=== PATIENT | female | born 1970 | race American Indian/Alaskan Native ===

== ENCOUNTER 2020-09-16 08:52 | Observation (INO) | payer OTHER, SELFPAY ==
--- NOTE | 2020-09-16 10:52 | Emergency Department Report ---
ED Dizziness HPI - General Chief Complaint: Dizziness Stated Complaint: DIZZY/LIGHT HEADED/BP HIGH Time Seen by Provider: 09/16/20 10:41 Source: patient Mode of arrival: Ambulatory Limitations: No Limitations - History of Present Illness Initial Comments: 50-year-old female presents to the ER today with complaints of not feeling well. Patient states that symptoms started this past Friday. She states that she has been feeling dizzy, generally weak especially in her legs, with associated nausea and vomiting and sometimes diarrhea. She reports associated slight headache but she denies any abdominal pain, chest pain or shortness of breath. She states that she try to go to work today but she still felt bad and when they checked her blood pressure was 160/105 and they recommended that she come to the ER to get checked out. She does have a history of tobacco use but denies any history of hypertension, diabetes, high cholesterol, heart or lung disease. MD Complaint: dizziness, lightheadedness, other (n/v, generalized weakness, elevated BP) - Related Data Home Medications Medication Instructions Recorded Confirmed Last Taken Multivit-Min/Iron/Folic Acid/K 1 each PO QDAY 09/16/20 09/16/20 09/16/20 08:00 [One Daily Women's Multivitamin] No Known Home Medications [No 09/16/20 09/16/20 Unknown Reported Home Medications] Allergies Allergy/AdvReac Type Severity Reaction Status Date / Time acetaminophen [From Percocet] Allergy Itching Verified 09/16/20 15:17 oxycodone [From Percocet] Allergy Itching Verified 09/16/20 15:17 ED Review of Systems ROS: Stated complaint: DIZZY/LIGHT HEADED/BP HIGH Other details as noted in HPI Comment: All other systems reviewed and negative Constitutional: denies: chills, fever Eyes: denies: eye pain, eye discharge, vision change ENT: denies: ear pain, throat pain Respiratory: denies: cough, shortness of breath, SOB with exertion, SOB at rest, wheezing Cardiovascular: denies: chest pain, palpitations, edema, syncope, paroxysmal nocturnal dyspnea Endocrine: no symptoms reported Gastrointestinal: nausea, vomiting, diarrhea. denies: abdominal pain, constipation, hematemesis, melena, hematochezia Genitourinary: denies: urgency, dysuria, frequency, hematuria, discharge, abnormal menses, dyspareunia Musculoskeletal: denies: joint swelling, arthralgia, myalgia Skin: denies: rash, lesions, change in color, change in hair/nails, pruritus Neurological: weakness. denies: numbness, paresthesias, confusion, abnormal gait Psychiatric: as per HPI. denies: anxiety, depression, homicidal thoughts, suicidal thoughts Hematological/Lymphatic: denies: easy bleeding, easy bruising, swollen glands ED Past Medical Hx - Past Medical History Previous Medical History?: Yes Hx Asthma: Yes - Surgical History Past Surgical History?: Yes Additional Surgical History: hernia repair - Medications Home Medications: Home Medications Medication Instructions Recorded Confirmed Last Taken Type Multivit-Min/Iron/Folic Acid/K 1 each PO QDAY 09/16/20 09/16/20 09/16/20 08:00 History [One Daily Women's Multivitamin] No Known Home Medications [No 09/16/20 09/16/20 Unknown History Reported Home Medications] ED Physical Exam - General Limitations: No Limitations General appearance: alert, in no apparent distress - Head Head exam: Present: atraumatic, normocephalic, normal inspection - Eye Eye exam: Present: normal appearance, PERRL, EOMI Pupils: Present: normal accommodation - ENT ENT exam: Present: normal exam, mucous membranes moist - Neck Neck exam: Present: normal inspection, full ROM - Respiratory Respiratory exam: Present: normal lung sounds bilaterally. Absent: respiratory distress, wheezes, rales, rhonchi - Cardiovascular Cardiovascular Exam: Present: normal rhythm, tachycardia, normal heart sounds - GI/Abdominal GI/Abdominal exam: Present: soft. Absent: distended, tenderness, guarding, rebound - Back Exam Back exam: Present: normal inspection - Neurological Exam Neurological exam: Present: alert, oriented X3, CN II-XII intact, normal gait - Psychiatric Psychiatric exam: Present: normal affect, normal mood - Skin Skin exam: Present: intact ED Course Vital Signs 09/16/20 09/16/20 09/16/20 08:59 15:18 17:08 Temperature 98.6 F 98.7 F Pulse Rate 110 H 78 Respiratory 20 20 Rate Blood Pressure 147/102 147/86 O2 Sat by Pulse 99 99 99 Oximetry 09/16/20 09/16/20 09/16/20 17:15 17:31 17:45 Temperature Pulse Rate 93 H 96 H 90 Respiratory 15 19 18 Rate Blood Pressure 137/90 137/90 137/90 O2 Sat by Pulse 99 99 98 Oximetry 09/16/20 09/16/20 09/16/20 18:00 18:15 18:31 Temperature Pulse Rate 99 H 107 H 104 H Respiratory 20 16 16 Rate Blood Pressure 127/83 127/83 127/83 O2 Sat by Pulse 98 98 Oximetry 09/16/20 09/16/20 09/16/20 18:45 19:00 19:15 Temperature Pulse Rate 109 H 110 H 117 H Respiratory 16 19 18 Rate Blood Pressure 127/83 123/82 123/82 O2 Sat by Pulse 98 98 Oximetry 09/16/20 09/16/20 09/16/20 19:31 19:45 19:56 Temperature Pulse Rate 116 H 115 H Respiratory 20 18 20 Rate Blood Pressure 123/82 123/82 O2 Sat by Pulse 99 99 95 Oximetry 09/16/20 09/16/20 20:00 20:11 Temperature Pulse Rate 98 H 103 H Respiratory 19 18 Rate Blood Pressure 117/77 117/77 O2 Sat by Pulse 98 Oximetry ED Medical Decision Making - Lab Data Result diagrams: 09/16/20 11:12 09/16/20 11:12 - EKG Data EKG shows normal: sinus rhythm Rate: normal - EKG Data Interpretation: normal EKG - Radiology Data Radiology results: report reviewed interpreted by me: Patient: ELY MARINA MR#: [id number] : 1970 Acct:[id number] Age/Sex: 50 / F ADM Date: 09/16/20 Loc: ED Attending Dr: Ordering Physician: OSWALD ADEN Date of Service: 09/16/20 Procedure(s): XR chest routine 2V Accession Number(s): [id number] cc: OSWALD ADEN Fluoro Time In Minutes: CHEST PA AND LATERAL VIEWS INDICATION: dizzy. COMPARISON: None FINDINGS: Support devices: None Heart: Normal Lungs/Pleura: No acute pulmonary or pleural findings. IMPRESSION: 1. No significant abnormalities. Signer Name: Seth Garcia MD Signed: 09/16/2020 11:22 AM Workstation Name: [id number] Transcribed By: TM Dictated By: Seth Garcia MD Electronically Authenticated By: Seth Garcia MD Signed Date/Time: 09/16/20 1122 DD/ 1122 TD/TT: Patient: ELY MARINA MR#: [id number] : 1970 Acct:[id number] Age/Sex: 50 / F ADM Date: 09/16/20 Loc: ED Attending Dr: Ordering Physician: OSWALD ADEN Date of Service: 09/16/20 Procedure(s): CT head/brain wo con Accession Number(s): [id number] cc: OSWALD ADEN CT HEAD WITHOUT CONTRAST INDICATION / CLINICAL INFORMATION: Patient complains of dizziness. TECHNIQUE: All CT scans at this location are performed using CT dose reduction for ALARA by means of automated exposure control. COMPARISON: None available. FINDINGS: HEMORRHAGE: No evidence of intracranial hemorrhage or extra-axial fluid collection. EXTRA-AXIAL SPACES: Cortical sulci, sylvian fissures and basilar cisterns have an unremarkable appearance. VENTRICULAR SYSTEM: The third and lateral ventricles are of normal size and configuration. CEREBRAL PARENCHYMA: No areas of abnormal brain parenchymal attenuation are identified. There is no indication of recent infarction. MIDLINE SHIFT OR HERNIATION: There is no mass effect. CEREBELLUM / BRAINSTEM: Brainstem and cerebellum have an unremarkable appearance. MIDLINE STRUCTURES:No abnormalities of the pituitary gland or pineal region are identified. INTRACRANIAL VESSELS:No abnormalities are identified on this noncontrast head CT. ORBITS: visualized portions of the orbits have an unremarkable appearance. SOFT TISSUES of HEAD: No significant abnormality. CALVARIUM: Evaluation of bone windows reveals no abnormalities. PARANASAL SINUSES / MASTOID AIR CELLS: Visualized portions of the paranasal sinuses are free from inflammatory mucosal disease. Mastoid air cells are normally pneumatized. IMPRESSION: 1. No significant abnormalities on head CT without contrast. Signer Name: Nigel Link MD Signed: 09/16/2020 1:01 PM Workstation Name: [id number] Transcribed By: Dictated By: Nigel Link MD Electronically Authenticated By: Nigel Link MD Signed Date/Time: 09/16/20 1301 DD/ 1300 TD/TT: - Medical Decision Making 50-year-old female presents to the ER today with complaints of not feeling well. Patient states that symptoms started this past Friday. She states that she has been feeling dizzy, generally weak especially in her legs, with associated nausea and vomiting and sometimes diarrhea. She reports associated slight headache but she denies any abdominal pain, chest pain or shortness of breath. She states that she try to go to work today but she still felt bad and when they checked her blood pressure was 160/105 and they recommended that she come to the ER to get checked out. She does have a history of tobacco use but denies any history of hypertension, diabetes, high cholesterol, heart or lung disease. Patient work-up today shows a mildly elevated troponin, initial troponin level 0.051, 3-hour troponin was 0.044, remainder of the labs are unremarkable. EKG showed normal EKG with sinus rhythm with no acute ischemic changes/STEMI or significant dysrhythmias. Head CT and EKG shows nothing acute. Discussed case with Dr. Namrata Stover and given patient's symptoms and elevations in her troponin, she recommend discussing case with [facility] Alcohol Treatment Specialist and then admitting to hospitalist 1512: Discussed case with Dr Cole, he agrees to admission and will consult on patient and will do an echo in morning. He recommended starting lovenox in meantime 1548: Discussed case with Dr Taylor, Hospitalist, he will admit patient Discussed lab results/imaging results and reason for admission with patient. He expressed understanding and agrees with plan. She is currently resting comfortably and is in no distress and is currently stable. Critical care attestation.: If time is entered above; I have spent that time in minutes in the direct care of this critically ill patient, excluding procedure time. ED Disposition Clinical Impression: Non-ST elevation ND (NSTEMI), Dizziness, Elevated blood pressure reading Disposition: OP ADMIT IP TO THIS HOSP Is pt being admited?: Yes Does the pt Need Aspirin: Yes Condition: Stable
--- NOTE | 2020-09-16 11:27 | XRay Report ---
CHEST PA AND LATERAL VIEWS INDICATION: dizzy. COMPARISON: None FINDINGS: Support devices: None Heart: Normal Lungs/Pleura: No acute pulmonary or pleural findings. IMPRESSION: 1. No significant abnormalities. Signer Name: Seth Garcia MD Signed: 09/16/2020 11:22 AM Workstation Name: [id number]
[2020-09-16 11:32] LABS: Basophils % (Auto) 0.6 % (0.0-1.8); Eosinophils % (Auto) 0.6 % (0.0-4.3); Hemoglobin 12.2 gm/dl (10.1-14.3); Lymphocytes # (Auto) 1.7 K/mm3 (1.2-5.4); Lymphocytes % (Auto) 27.2 % (13.4-35.0); Mean Corpuscular HGB Conc 34 % (30-34); Mean Corpuscular Volume 106 fl (79-97); Monocytes # (Auto) 0.6 K/mm3 (0.0-0.8); Monocytes % (Auto) 9.1 % (0.0-7.3); Platelet Count 207 K/mm3 (140-440); Red Blood Count 3.42 M/mm3 (3.65-5.03); Red Cell Distribution Width 15.7 % (13.2-15.2)
[2020-09-16 11:51] LABS: Alanine Aminotransferase 30 units/L (7-56); Albumin 4.4 g/dL (3.9-5); BUN/Creatinine Ratio 17; Blood Urea Nitrogen 17 mg/dL (7-17); Calcium 8.8 mg/dL (8.4-10.2); Hemolysis Index 4
[2020-09-16] MEDS ORDERED: ASPIRIN 325 MG TAB PO ONE ×2 (12:14→15:19)
[2020-09-16] MEDS ORDERED: MAGNESIUM OXIDE 400 MG TAB PO STA ×2 (12:15→15:20)
[2020-09-16 12:20] LABS: Chol/HDL Ratio 2.22 %
[2020-09-16 12:29] LABS: Amphetamine Screen,Urine Negative; Bacteria,Urine 1+ /HPF (Negative); Benzodiazepines Screen,Urine Negative; Bilirubin,Urine NEG (Negative); Blood,Urine NEG (Negative); Cannabinoid Screen,Urine Negative; Cocaine Screen,Urine Negative; Color,Urine Yellow (Yellow); Methadone Screen,Urine Negative; Mucus,Urine 2+ /HPF; Opiate Screen,Urine Negative
--- NOTE | 2020-09-16 13:06 | Cat Scan Report ---
CT HEAD WITHOUT CONTRAST INDICATION / CLINICAL INFORMATION: Patient complains of dizziness. TECHNIQUE: All CT scans at this location are performed using CT dose reduction for ALARA by means of automated e xposure control. COMPARISON: None available. FINDINGS: HEMORRHAGE: No evidence of intracranial hemorrhage or extra-axial fluid collection. EXTRA-AXIAL SPACES: Cortical sulci, sylvian fissures and basilar cisterns have an unremarkable appear ance. VENTRICULAR SYSTEM: The third and lateral ventricles are of normal size and configuration. CEREBRAL PARENCHYMA: No areas of abnormal brain parenchymal attenuation are identified. There is no i ndication of recent infarction. MIDLINE SHIFT OR HERNIATION: There is no mass effect. CEREBELLUM / BRAINSTEM: Brainstem and cerebellum have an unremarkable appearance. MIDLINE STRUCTURES:No abnormalities of the pituitary gland or pineal region are identified. INTRACRANIAL VESSELS:No abnormalities are identified on this noncontrast head CT. ORBITS: visualized portions of the orbits have an unremarkable appearance. SOFT TISSUES of HEAD: No significant abnormality. CALVARIUM: Evaluation of bone windows reveals no abnormalities. PARANASAL SINUSES / MASTOID AIR CELLS: Visualized portions of the paranasal sinuses are free from inf lammatory mucosal disease. Mastoid air cells are normally pneumatized. IMPRESSION: 1. No significant abnormalities on head CT without contrast. Signer Name: Nigel Link MD Signed: 09/16/2020 1:01 PM Workstation Name: [id number]
[2020-09-16] MEDS ORDERED: ENOXAPARIN 100 MG/1 ML INJ SUB-Q ONE (15:14)
[2020-09-16] MEDS ORDERED: NITROGLYCERIN 0.4 MG TAB SUBL SL PRN (15:46)
[2020-09-16] MEDS ORDERED: ONDANSETRON 4 MG/2 ML INJ IV PRN (15:46)
[2020-09-16] MEDS ORDERED: ACETAMINOPHEN 325 MG TAB PO PRN ×2 (15:46)
--- NOTE | 2020-09-16 15:49 | History and Physical Report ---
History of Present Illness Chief complaint: I do not feel good History of present illness: 50 YO Female with Mild Intermittent Asthma presents to ED for evaluation. Patient reports "I was not feeling well. Patient states that she has experienced generalized weakness, decreased exercise tolerance, multiple episodes of nausea over the past 4 days with persistent symptoms over the same timeframe. Patient states that she has experienced worsening symptoms while at work and was found to have a blood pressure of 160/105. Patient was transported to [facility] via private vehicle for further care and evaluation of the aforementioned symptoms. The patient was seen and evaluated in the emergency department. All lab and imaging studies reviewed. Patient found to have elevated troponin and symptoms consistent with non-ST elevation GA. The patient was admitted to telemetry and treated with therapeutic anticoagulation. Cardiology team consulted in ED. Patient denies fever, chills, palpitation, productive cough, skin rash, recent ill contact, unilateral leg swelling, calf pain, individual/family history of DVT/PE/bleeding/blood clotting disorders, or known exposure to COVID-19. No prior admission for review. No medication listed at time of admission reconciliation. Past History Past Medical History: other (See HPI) Past Surgical History: hernia repair Social history: single. denies: smoking, alcohol abuse, prescription drug abuse Family history: hypertension Medications and Allergies Allergies Allergy/AdvReac Type Severity Reaction Status Date / Time acetaminophen [From Percocet] Allergy Itching Verified 09/16/20 15:17 oxycodone [From Percocet] Allergy Itching Verified 09/16/20 15:17 Home Medications Medication Instructions Recorded Confirmed Last Taken Type Multivit-Min/Iron/Folic Acid/K 1 each PO QDAY 09/16/20 09/16/20 09/16/20 08:00 History [One Daily Women's Multivitamin] No Known Home Medications [No 09/16/20 09/16/20 Unknown History Reported Home Medications] Active Meds: Active Medications Acetaminophen (Acetaminophen 325 Mg Tab) 650 mg PO Q4H PRN PRN Reason: Pain MILD(1-3)/Fever >100.5/SAAMNO Acetaminophen (Acetaminophen 325 Mg Tab) 650 mg PO Q6H PRN PRN Reason: Pain, Mild (1-3) Famotidine (Famotidine 20 Mg Tab) 20 mg PO BID MAIKEL Nitroglycerin (Nitroglycerin 0.4 Mg Tab Subl) 0.4 mg SL Q5M PRN PRN Reason: Chest Pain Ondansetron HCl (Ondansetron 4 Mg/2 Ml Inj) 4 mg IV Q8H PRN PRN Reason: Nausea And Vomiting Sodium Chloride (Sodium Chloride 0.9% 10 Ml Flush Syringe) 10 ml IV BID MAIKEL Sodium Chloride (Sodium Chloride 0.9% 10 Ml Flush Syringe) 10 ml IV PRN PRN PRN Reason: LINE FLUSH Sodium Chloride (Sodium Chloride 0.9% 10 Ml Flush Syringe) 10 ml IV PRN PRN PRN Reason: LINE FLUSH Tramadol HCl (Tramadol 50 Mg Tab) 50 mg PO Q6H PRN PRN Reason: Pain, Moderate (4-6) Review of Systems Constitutional: weakness, other (I do not feel), no weight loss, no chills Ears, nose, mouth and throat: no ear pain, no tinnitis, no nose pain Breasts: no change in shape, no mass Cardiovascular: no chest pain, no orthopnea, no palpitations, no edema, no syncope Respiratory: no cough, no cough with sputum, no excessive sputum, no hemoptysis Gastrointestinal: nausea, vomiting, no abdominal pain, no diarrhea, no constipation, no hematemesis Genitourinary Female: no pelvic pain, no flank pain, no dysuria, no urinary frequency, no urgency Rectal: no pain, no incontinence, no bleeding Musculoskeletal: no neck stiffness, no neck pain Integumentary: no rash, no redness, no sores, no wounds, no jaundice, no boils Neurological: no head injury, no paralysis, no parathesias, no tingling, no seizures Psychiatric: no anxiety, no memory loss, no sleep disturbances, no hypersomnia, no change in libido, no disorientation Endocrine: no cold intolerance, no excessive thirst, no polydipsia Hematologic/Lymphatic: no easy bruising Allergic/Immunologic: no urticaria, no allergic rhinitis, no wheezing Exam - Constitutional Vitals: Temp Pulse Resp BP Pulse Ox 98.7 F 78 20 147/86 99 09/16/20 15:18 09/16/20 15:18 09/16/20 15:18 09/16/20 15:18 09/16/20 15:18 General appearance: Present: mild distress - EENT Eyes: Present: PERRL ENT: hearing intact, clear oral mucosa - Neck Neck: Present: supple, normal ROM - Respiratory Respiratory effort: normal Respiratory: bilateral: CTA - Cardiovascular Heart Sounds: Present: S1 & S2. Absent: rub, click - Extremities Extremities: pulses symmetrical, No edema Peripheral Pulses: within normal limits - Abdominal General gastrointestinal: Present: soft, non-tender, non-distended, normal bowel sounds Female genitourinary: Present: normal - Integumentary Integumentary: Present: clear, warm, dry - Musculoskeletal Musculoskeletal: gait normal, strength equal bilaterally - Psychiatric Psychiatric: appropriate mood/affect, intact judgment & insight - Neurologic Neurologic: CNII-XII intact, moves all extremities HEART Score - HEART Score Troponin: Troponin T 0.044 ng/mL (0.00-0.029) H 09/16/20 14:14 Results - Labs CBC & Chem 7: 09/16/20 11:12 09/16/20 11:12 Labs: Abnormal lab results 09/16/20 09/16/20 09/16/20 Range/Units 11:12 11:12 11:12 RBC 3.42 L (3.65-5.03) M/mm3 MCV 106 H (79-97) fl MCH 36 H (28-32) pg RDW 15.7 H (13.2-15.2) % Waldo % (Auto) 9.1 H (0.0-7.3) % Chloride 96.3 L (98-107) mmol/L Magnesium 1.40 L (1.7-2.3) mg/dL AST 85 H (5-40) units/L Troponin T 0.051 H (0.00-0.029) ng/mL Cholesterol 205 H (50-199) mg/dL HDL Cholesterol 92 H (40-59) mg/dL Urine WBC (Auto) (0.0-6.0) /HPF 09/16/20 09/16/20 Range/Units 11:40 14:14 RBC (3.65-5.03) M/mm3 MCV (79-97) fl MCH (28-32) pg RDW (13.2-15.2) % Waldo % (Auto) (0.0-7.3) % Chloride (98-107) mmol/L Magnesium (1.7-2.3) mg/dL AST (5-40) units/L Troponin T 0.044 H (0.00-0.029) ng/mL Cholesterol (50-199) mg/dL HDL Cholesterol (40-59) mg/dL Urine WBC (Auto) 9.0 H (0.0-6.0) /HPF Assessment and Plan - Patient Problems (1) Non-ST elevation GA (NSTEMI) Current Visit: Yes Status: Acute Plan to address problem: ACS protocol: Serial cardiac enzymes, EKG, telemetry monitoring, cardiology team consulted in ED, therapeutic anticoagulation, supplemental oxygen, morphine, supplemental oxygen, nitro, aspirin, supportive care. Blood pressure control. (2) Accelerated hypertension Current Visit: Yes Status: Acute Plan to address problem: Monitor blood pressure every shift, continue medical management. (3) DVT prophylaxis Current Visit: Yes Status: Acute Plan to address problem: SCD to bilateral lower extremities while in bed, patient is ambulatory.
[2020-09-16 17:15] LABS: INR 0.95 (0.87-1.13)
[2020-09-16] MEDS: traMADol 50 MG TAB PO PRN (22:05)
[2020-09-16] MEDS: FAMOTIDINE 20 MG TAB PO SCH ×2 (22:06→23:35)
[2020-09-17] MEDS: FAMOTIDINE 20 MG TAB PO SCH ×2 (09:47→21:02)
--- NOTE | 2020-09-17 11:55 | Consultation ---
History of Present Illness Consult date: 09/17/20 Requesting physician: EMELY MONSIVAIS Consult reason: elevated troponin History of present illness: 50-year-old patient history of smoker for the last few days having dizziness with movement and her equilibrium off came to the emergency room for evaluation not feeling well. Fluctuations in blood pressure. Found with elevated troponin x2. EKG is sinus rhythm no ST-T abnormalities. Patient denies any chest pain shortness of breath syncope. Did have fever and chills a week ago. Denies any nausea vomiting diarrhea. Repeat troponins have been negative x2 Past History Past Medical History: other (See HPI) Past Surgical History: hernia repair Social history: single. denies: smoking, alcohol abuse, prescription drug abuse Family history: hypertension Medications and Allergies Allergies Allergy/AdvReac Type Severity Reaction Status Date / Time acetaminophen [From Percocet] Allergy Itching Verified 09/16/20 15:17 oxycodone [From Percocet] Allergy Itching Verified 09/16/20 15:17 Home Medications Medication Instructions Recorded Confirmed Last Taken Type Multivit-Min/Iron/Folic Acid/K 1 each PO QDAY 09/16/20 09/16/20 09/16/20 08:00 History [One Daily Women's Multivitamin] No Known Home Medications [No 09/16/20 09/16/20 Unknown History Reported Home Medications] Active Meds: Active Medications Acetaminophen (Acetaminophen 325 Mg Tab) 650 mg PO Q4H PRN PRN Reason: Pain MILD(1-3)/Fever >100.5/SAMANO Famotidine (Famotidine 20 Mg Tab) 20 mg PO BID [facility] Last Admin: 09/17/20 09:47 Dose: 20 mg Documented by: Meclizine HCl (Meclizine 25 Mg Tab) 25 mg PO Q8H PRN PRN Reason: Vertigo Nitroglycerin (Nitroglycerin 0.4 Mg Tab Subl) 0.4 mg SL Q5M PRN PRN Reason: Chest Pain Ondansetron HCl (Ondansetron 4 Mg/2 Ml Inj) 4 mg IV Q8H PRN PRN Reason: Nausea And Vomiting Sodium Chloride (Sodium Chloride 0.9% 10 Ml Flush Syringe) 10 ml IV BID [facility] Last Admin: 09/17/20 09:47 Dose: 10 ml Documented by: Sodium Chloride (Sodium Chloride 0.9% 10 Ml Flush Syringe) 10 ml IV PRN PRN PRN Reason: LINE FLUSH Tramadol HCl (Tramadol 50 Mg Tab) 50 mg PO Q6H PRN PRN Reason: Pain, Moderate (4-6) Last Admin: 09/16/20 22:05 Dose: 50 mg Documented by: Review of Systems All systems: negative (as per hpi) Physical Examination Vital Signs Temp Pulse Resp BP Pulse Ox 98.6 F 110 H 20 147/102 99 09/16/20 08:59 09/16/20 08:59 09/16/20 08:59 09/16/20 08:59 09/16/20 08:59 General appearance: no acute distress, well-nourished HEENT: Positive: PERRL, Mucus Membranes Moist Neck: Positive: neck supple, trachea midline Cardiac: Positive: Reg Rate and Rhythm, S1/S2. Negative: Audible Murmur Lungs: Positive: clear to auscultation, Normal Breath Sounds Neuro: Positive: Grossly Intact Abdomen: Positive: Soft, Active Bowel Sounds. Negative: Tender, Distended Female genitourinary: deferred Skin: Positive: Clear Incision: Cardiac Cath Site Musculoskeletal: No Pain, Normal Range of Motion Extremities: Present: normal. Absent: edema Results 09/16/20 11:12 09/16/20 11:12 Coagulation 09/16/20 Range/Units 16:02 PT 12.6 (12.2-14.9) Sec. INR 0.95 (0.87-1.13) APTT 27.0 (24.2-36.6) Sec. Lipids 09/16/20 Range/Units 11:12 Triglycerides 104 (2-149) mg/dL Cholesterol 205 H (50-199) mg/dL HDL Cholesterol 92 H (40-59) mg/dL Cholesterol/HDL Ratio 2.22 % EKG interpretations - Telemetry EKG Rhythm: Sinus Rhythm (Sinus rhythm no ST-T abnormality) Assessment and Plan 50-year-old patient with fluctuating blood pressure blood pressure currently controlled with dizziness start meclizine and in view of abnormal troponins and smoking history do a Lexiscan nuclear stress test in the morning - Patient Problems (1) Dizziness Current Visit: Yes Status: Acute (2) Elevated blood pressure reading Current Visit: Yes Status: Acute (3) Non-ST elevation NV (NSTEMI) Current Visit: Yes Status: Acute
[2020-09-17] MEDS: MECLIZINE 25 MG TAB PO PRN ×2 (12:29→17:53)
--- NOTE | 2020-09-17 13:12 | Progress Note ---
Assessment and Plan Assessment and plan: (1) Non-ST elevation [place] (NSTEMI) Current Visit: Yes Status: Acute Plan to address problem: Cardiology consulted Plan for stress test tomorrow (2) Accelerated hypertension Current Visit: Yes Status: Acute Plan to address problem: Monitor blood pressure every shift, continue medical management. (3) DVT prophylaxis Current Visit: Yes Status: Acute Plan to address problem: SCD to bilateral lower extremities while in bed, patient is ambulatory. History Interval history: Patient admitted with chest pain. Cardiology consulted Plan for stress test tomorrow Hospitalist Physical - Physical exam Narrative exam: VITAL SIGNS: Reviewed. GENERAL: Awake HEAD: No signs of head trauma. EYES: Pupils are equal. Extraocular motions intact. MOUTH: Oropharynx is normal. NECK: No adenopathy, no JVD. CHEST: Chest with diminished breath sounds bilaterally. No wheezes, rales, or rhonchi. CARDIAC: normal S1 and S2, without murmurs, gallops, or rubs. ABDOMEN: Soft, non tender and non distended. No rebound or guarding, and no masses palpated. Bowel Sounds normal. MUSCULOSKELETAL: No edema NEUROLOGIC EXAM: Alert and oriented x3. No focal neurologic deficits SKIN: No obvious lesions - Constitutional Vitals: Temp Pulse Resp BP Pulse Ox 98.5 F 85 18 114/74 97 09/17/20 08:20 09/17/20 12:00 09/17/20 09:00 09/17/20 08:20 09/17/20 09:00 HEART Score - HEART Score Troponin: Troponin T < 0.010 ng/mL (0.00-0.029) 09/16/20 22:40 Results - Labs CBC & Chem 7: 09/16/20 11:12 09/16/20 11:12 Labs: Laboratory Last Values WBC 6.4 K/mm3 (4.5-11.0) 09/16/20 11:12 RBC 3.42 M/mm3 (3.65-5.03) L 09/16/20 11:12 Hgb 12.2 gm/dl (10.1-14.3) 09/16/20 11:12 Hct 36.0 % (30.3-42.9) 09/16/20 11:12 MCV 106 fl (79-97) H 09/16/20 11:12 MCH 36 pg (28-32) H 09/16/20 11:12 MCHC 34 % (30-34) 09/16/20 11:12 RDW 15.7 % (13.2-15.2) H 09/16/20 11:12 Plt Count 207 K/mm3 (140-440) 09/16/20 11:12 Lymph % (Auto) 27.2 % (13.4-35.0) 09/16/20 11:12 Stone % (Auto) 9.1 % (0.0-7.3) H 09/16/20 11:12 Eos % (Auto) 0.6 % (0.0-4.3) 09/16/20 11:12 Baso % (Auto) 0.6 % (0.0-1.8) 09/16/20 11:12 Lymph # (Auto) 1.7 K/mm3 (1.2-5.4) 09/16/20 11:12 Stone # (Auto) 0.6 K/mm3 (0.0-0.8) 09/16/20 11:12 Eos # (Auto) 0.0 K/mm3 (0.0-0.4) 09/16/20 11:12 Baso # (Auto) 0.0 K/mm3 (0.0-0.1) 09/16/20 11:12 Seg Neutrophils % 62.5 % (40.0-70.0) 09/16/20 11:12 Seg Neutrophils # 4.0 K/mm3 (1.8-7.7) 09/16/20 11:12 PT 12.6 Sec. (12.2-14.9) 09/16/20 16:02 INR 0.95 (0.87-1.13) 09/16/20 16:02 APTT 27.0 Sec. (24.2-36.6) 09/16/20 16:02 Sodium 137 mmol/L (137-145) 09/16/20 11:12 Potassium 3.6 mmol/L (3.6-5.0) 09/16/20 11:12 Chloride 96.3 mmol/L (98-107) L 09/16/20 11:12 Carbon Dioxide 25 mmol/L (22-30) 09/16/20 11:12 Anion Gap 19 mmol/L 09/16/20 11:12 BUN 17 mg/dL (7-17) 09/16/20 11:12 Creatinine 1.0 mg/dL (0.6-1.2) 09/16/20 11:12 Estimated GFR > 60 ml/min 09/16/20 11:12 BUN/Creatinine Ratio 17 % 09/16/20 11:12 Glucose 86 mg/dL (65-100) 09/16/20 11:12 Calcium 8.8 mg/dL (8.4-10.2) 09/16/20 11:12 Magnesium 1.40 mg/dL (1.7-2.3) L 09/16/20 11:12 Total Bilirubin 0.30 mg/dL (0.1-1.2) 09/16/20 11:12 AST 85 units/L (5-40) H 09/16/20 11:12 ALT 30 units/L (7-56) 09/16/20 11:12 Alkaline Phosphatase 99 units/L (35-129) 09/16/20 11:12 Troponin T < 0.010 ng/mL (0.00-0.029) 09/16/20 22:40 Total Protein 7.6 g/dL (6.3-8.2) 09/16/20 11:12 Albumin 4.4 g/dL (3.9-5) 09/16/20 11:12 Albumin/Globulin Ratio 1.4 % 09/16/20 11:12 Triglycerides 104 mg/dL (2-149) 09/16/20 11:12 Cholesterol 205 mg/dL (50-199) H 09/16/20 11:12 LDL Cholesterol Direct 102 mg/dL (50-130) 09/16/20 11:12 HDL Cholesterol 92 mg/dL (40-59) H 09/16/20 11:12 Cholesterol/HDL Ratio 2.22 % 09/16/20 11:12 TSH 1.180 mlU/mL (0.270-4.200) 09/16/20 11:12 Urine Color Yellow (Yellow) 09/16/20 11:40 Urine Turbidity Cloudy (Clear) 09/16/20 11:40 Urine pH 5.0 (5.0-7.0) 09/16/20 11:40 Ur Specific [place] 1.018 (1.003-1.030) 09/16/20 11:40 Urine Protein 30 mg/dl mg/dL (Negative) 09/16/20 11:40 Urine Glucose (UA) Neg mg/dL (Negative) 09/16/20 11:40 Urine Ketones Neg mg/dL (Negative) 09/16/20 11:40 Urine Blood Neg (Negative) 09/16/20 11:40 Urine Nitrite Neg (Negative) 09/16/20 11:40 Urine Bilirubin Neg (Negative) 09/16/20 11:40 Urine Urobilinogen 2.0 mg/dL (<2.0) 09/16/20 11:40 Ur Leukocyte Esterase Tr (Negative) 09/16/20 11:40 Urine WBC (Auto) 9.0 /HPF (0.0-6.0) H 09/16/20 11:40 Urine RBC (Auto) 4.0 /HPF (0.0-6.0) 09/16/20 11:40 U Epithel Cells (Auto) 5.0 /HPF (0-13.0) 09/16/20 11:40 Urine Bacteria (Auto) 1+ /HPF (Negative) 09/16/20 11:40 Urine Mucus 2+ /HPF 09/16/20 11:40 Urine Opiates Screen Negative 09/16/20 11:40 Urine Methadone Screen Negative 09/16/20 11:40 Ur Barbiturates Screen Negative 09/16/20 11:40 Ur Phencyclidine Scrn Negative 09/16/20 11:40 Ur Amphetamines Screen Negative 09/16/20 11:40 U Benzodiazepines Scrn Negative 09/16/20 11:40 Urine Cocaine Screen Negative 09/16/20 11:40 U Marijuana (THC) Screen Negative 09/16/20 11:40 Drugs of Abuse Note Disclamer 09/16/20 11:40 Active Medications - Current Medications Current Medications: Generic Name Dose Route Start Last Admin Trade Name Freq PRN Reason Stop Dose Admin Acetaminophen 650 mg 09/16/20 15:46 Acetaminophen 325 Mg Tab PO Q4H PRN Pain MILD(1-3)/Fever >100.5/SAMANO Famotidine 20 mg 09/16/20 22:00 09/17/20 09:47 Famotidine 20 Mg Tab PO 20 mg BID MAIKEL Administration Meclizine HCl 25 mg 09/17/20 11:52 09/17/20 12:29 Meclizine 25 Mg Tab PO 25 mg Q8H PRN Administration Vertigo Nitroglycerin 0.4 mg 09/16/20 15:46 Nitroglycerin 0.4 Mg Tab Subl SL Q5M PRN Chest Pain Ondansetron HCl 4 mg 09/16/20 15:46 Ondansetron 4 Mg/2 Ml Inj IV Q8H PRN Nausea And Vomiting Sodium Chloride 10 ml 09/16/20 22:00 09/17/20 09:47 Sodium Chloride 0.9% 10 Ml Flush Syringe IV 10 ml BID MAIKEL Administration Sodium Chloride 10 ml 09/16/20 15:46 Sodium Chloride 0.9% 10 Ml Flush Syringe IV PRN PRN LINE FLUSH Tramadol HCl 50 mg 09/16/20 15:46 09/16/20 22:05 Tramadol 50 Mg Tab PO 50 mg Q6H PRN Administration Pain, Moderate (4-6)
[2020-09-17] MEDS: traMADol 50 MG TAB PO PRN (21:02)
[2020-09-18] MEDS ORDERED: REGADENOSON 0.4 MG/5 ML INJ IV ONE (08:26)
[2020-09-18] MEDS: FAMOTIDINE 20 MG TAB PO SCH ×2 (10:59→21:30)
--- NOTE | 2020-09-18 13:14 | Discharge Summary ---
Providers - Providers Date of Admission: 09/16/20 15:46 Attending physician: SAMMY CHAUDHARY MD 09/16/20 Consult to Cardiac Rehabilitation [CONS] Routine Reason For Exam: Phase I 09/16/20 15:56 Consult to Physician [CONS] Routine Comment: Consulting Provider: LOU SABA Physician Instructions: Reason For Exam: nstemi/chf Primary care physician: KIER HAND Hospitalization Reason for admission: Chest pain Condition: Stable Hospital course: 50 YO Female with Mild Intermittent Asthma presents to ED for evaluation. Patient reports "I was not feeling well. Patient states that she has experienced generalized weakness, decreased exercise tolerance, multiple episodes of nausea over the past 4 days with persistent symptoms over the same timeframe. Patient states that she has experienced worsening symptoms while at work and was found to have a blood pressure of 160/105. Patient was transported to [facility] via private vehicle for further care and evaluation of the aforementioned symptoms. The patient was seen and evaluated in the emergency department. All lab and imaging studies reviewed. Patient found to have eleva kiya troponin and symptoms consistent with non-ST elevation [place]. The patient was admitted to telemetry and treated with therapeutic anticoagulation. Cardiology team consulted in ED. Patient denies fever, chills, palpitation, productive cough, skin rash, recent ill contact, unilateral leg swelling, calf pain, individual/family history of DVT/PE/bleeding/blood clotting disorders, or known exposure to COVID-19. No prior admission for review. No medication listed at time of admission reconciliation. Patient on admission was seen by cardiology was noted to have fluctuating blood pressure blood pressure currently controlled with dizziness start meclizine and in view of abnormal troponins and smoking history do a Lexiscan nuclear stress test Counseling was given to the patient on tobacco use she verbalized understanding. - Patient Problems (1) Non-ST elevation [place] (NSTEMI) Current Visit: Yes Status: Acute (2) accelerated hypertension Current Visit: Yes Status: Acute (3) tobacco use disorder (4) dizziness Current Visit: Yes Status: Acute Disposition: - TO HOME OR SELFCARE Final Discharge Diagnosis (Prints w/discharge instructions): Chest pain Time spent for discharge: 35 minutes Core Measure Documentation - Palliative Care Palliative Care/ Comfort Measures: Not Applicable - Core Measures Any of the following diagnoses?: none Exam - Physical Exam Narrative exam: VITAL SIGNS: Reviewed. GENERAL: The patient appears normally developed, Vital signs as documented. HEAD: No signs of head trauma. EYES: Pupils are equal. Extraocular motions intact. EARS: Hearing grossly intact. MOUTH: Oropharynx is normal. NECK: No adenopathy, no JVD. CHEST: Chest with clear breath sounds bilaterally. No wheezes, rales, or rhonchi. CARDIAC: Regular rate and rhythm. S1 and S2, without murmurs, gallops, or rubs. VASCULAR: No Edema. Peripheral pulses normal and equal in all extremities. ABDOMEN: Soft, non tender and non distended. No rebound or guarding, and no masses palpated. Bowel Sounds normal. MUSCULOSKELETAL: Good range of motion of all major joints. Extremities without clubbing, cyanosis or edema. NEUROLOGIC EXAM: Alert and oriented x 3 No focal sensory or strength deficits. Speech normal. Follows commands. PSYCHIATRIC: Mood normal. SKIN: detail exam as documented in skin assessment - Constitutional Vitals: Temp Pulse Resp BP Pulse Ox 98.8 F 64 18 126/87 100 09/18/20 11:44 09/18/20 12:00 09/18/20 11:44 09/18/20 11:44 09/18/20 11:44 Plan Activity: advance as tolerated, fall precautions Diet: low fat Special Instructions: record daily weights, record daily BP diary Follow up with: PRIMARY CARE, [Primary Care Provider] - 3-5 Days TARA BEACH MD [Staff Physician] - 7 Days Prescriptions: Meclizine [Antivert] 25 mg PO Q8H PRN #90 tablet PRN Reason: Vertigo Famotidine [Pepcid] 20 mg PO BID #60 tablet
--- NOTE | 2020-09-18 13:21 | Progress Note ---
Assessment and Plan Telemetry reviewed: Sinus rhythm 83. No events. Elevated troponins Troponins are elevated. Suspect lab error. Repeat troponins are normal. Patient is currently chest pain-free. Due to risk factors patient underwent Lexiscan MPI this a.m. Results are pending Echocardiogram reviewed (09/16/2020): LVEF is 55 to 60%. LV SF is normal. Mild diastolic dysfunction is present (impaired relaxation pattern). RVSP is 25 mmHg 12-lead reviewed no ST segment elevation. Dizziness Symptoms resolved currently on meclizine DVT prophylaxis SCDs are ordered Patient currently in stable cardiac status. Recommendations pending Lexiscan MPI results. Anticipate discharge if normal Will follow This patient was seen in conjunction with Dr Sanchez who agrees with this assessment and plan of care - Patient Problems (1) Dizziness Current Visit: Yes Status: Acute (2) Elevated blood pressure reading Current Visit: Yes Status: Acute (3) Non-ST elevation [place] (NSTEMI) Current Visit: Yes Status: Acute Subjective Date of service: 09/18/20 Principal diagnosis: Dizziness Interval history: Patient resting comfortably in bed. No chest pain or shortness of breath overnight. Telemetry reviewed: Sinus rhythm 83. No events Objective Last Vital Signs Temp 98.8 F 09/18/20 11:44 Pulse 64 09/18/20 12:00 Resp 18 09/18/20 11:44 BP 126/87 09/18/20 11:44 Pulse Ox 100 09/18/20 11:44 - Physical Examination HEENT: Positive: PERRL, Mucus Membranes Moist Neck: Positive: neck supple, trachea midline Cardiac: Positive: Reg Rate and Rhythm, S1/S2 Lungs: Positive: clear to auscultation, Normal Breath Sounds Neuro: Positive: Grossly Intact Abdomen: Positive: Soft, Active Bowel Sounds. Negative: Tender, Distended Skin: Positive: Clear Incision: Cardiac Cath Site Musculoskeletal: No Pain, Normal Range of Motion Extremities: Present: normal. Absent: edema - Imaging and Cardiology EKG: report reviewed, image reviewed Echo: report reviewed (Echocardiogram reviewed (09/16/2020): LVEF is 55 to 60%. LV SF is normal. Mild diastolic dysfunction is present (impaired relaxation pattern). RVSP is 25 mmHg)
[2020-09-18] MEDS: traMADol 50 MG TAB PO PRN (19:48)
[2020-09-18] MEDS: MECLIZINE 25 MG TAB PO PRN (21:30)
[2020-09-19 08:30] VITALS: BP 136/83
[2020-09-19] MEDS: FAMOTIDINE 20 MG TAB PO SCH (10:29)
[2020-09-19] MEDS: MECLIZINE 25 MG TAB PO PRN (11:34)
[2020-09-19] MEDS: traMADol 50 MG TAB PO PRN (11:34)
--- NOTE | 2020-09-19 12:16 | Discharge Summary ---
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 Ifeanyi nt reports "I was not feeling well. Patient states that she has experienced generalized weakness, decreased exercise tolerance, multiple episodes of nausea over the past 4 days with persistent symptoms over the same timeframe. Patient states that she has experienced worsening symptoms while at work and was found to have a blood pressure of 160/105. Patient was transported to [facility] via private vehicle for further care and evaluation of the aforementioned symptoms. The patient was seen and evaluated in the emergency department. All lab and imaging studies reviewed. Patient found to have elevated troponin and symptoms consistent with non-ST elevation RI. The patient was admitted to telemetry and treated with therapeutic anticoagulation. Cardiology team consulted in ED. Patient denies fever, chills, palpitation, productive cough, skin rash, recent ill contact, unilateral leg swelling, calf pain, individual/family history of DVT/PE/bleeding/blood clotting disorders, or known exposure to COVID-19. No prior admission for review. No medication listed at time of admission reconciliation. Hospital course. Patient was seen by cardiology who recommends a stress test.. Patient had a stress test showed no significant ischemia. She complained of dizziness, ringing in her ears and some nasal congestion. Etiology of dizziness likely from vestibular dysfunction. Patient started on meclizine with improvement. She will be discharged to follow-up with her primary medical doctor in 1 to 2 weeks. Disposition: TO HOME OR SELFCARE Final Discharge Diagnosis (Prints w/discharge instructions): Chest pain Time spent for discharge: 35 minutes Core Measure Documentation - Palliative Care Palliative Care/ Comfort Measures: Not Applicable - Core Measures Any of the following diagnoses?: none Exam - Physical Exam Narrative exam: VITAL SIGNS: Reviewed. GENERAL: Awake HEAD: No signs of head trauma. EYES: Pupils are equal. Extraocular motions intact. MOUTH: Oropharynx is normal. NECK: No adenopathy, no JVD. CHEST: Chest with diminished breath sounds bilaterally. No wheezes, rales, or rhonchi. CARDIAC: normal S1 and S2, without murmurs, gallops, or rubs. ABDOMEN: Soft, non tender and non distended. No rebound or guarding, and no masses palpated. Bowel Sounds normal. MUSCULOSKELETAL: No edema NEUROLOGIC EXAM: Alert and oriented x3. No focal neurologic deficits SKIN: No obvious lesions - Constitutional Vitals: Temp Pulse Resp BP Pulse Ox 99.0 F 60 18 136/83 100 09/19/20 07:16 09/19/20 08:03 09/19/20 07:16 09/19/20 07:16 09/19/20 09:58 Plan Diet: low salt Additional Instructions: Continue medications as ordered. Follow-up with PCP in a week. 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
--- NOTE | 2020-09-19 12:47 | Electrocardiograph Report ---
[facility] Test Date: 2020-09-16 Test Time: 10:53:03 Pat Name: ELY MARINA Department: Room: A469 1 Gender: F Director Business Development: ZHANE : 1970 Requested By: OSWALD ADEN Order Number: [id number] Reading MD: Allison Avila Measurements Intervals [place] Rate: 86 P: 67 MS: 135 QRS: 63 QRSD: 76 T: 48 QT: 395 QTc: 473 Interpretive Statements Sinus rhythm No previous ECG available for comparison Electronically Signed On 09-19-2020 12:47:38 EDT by Allison Avila
--- NOTE | 2020-09-19 12:54 | Electrocardiograph Report ---
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
--- NOTE | 2020-09-19 13:10 | Progress Note ---
Assessment and Plan Telemetry reviewed: Sinus rhythm 83. No events. Elevated troponins Troponins are elevated. Suspect lab error. Repeat troponins are normal. Patient is currently chest pain-free. Lexiscan MPI reviewed (09/18/2020): Negative for reversible ischemia Echocardiogram reviewed (09/16/2020): LVEF is 55 to 60%. LV SF is normal. Mi ld diastolic dysfunction is present (impaired relaxation pattern). RVSP is 25 mmHg 12-lead reviewed no ST segment elevation. Dizziness Symptoms resolved currently on meclizine DVT prophylaxis SCDs are ordered Patient currently in stable cardiac status in setting of normal Lexiscan MPI and normal echocardiogram with negative troponins after retest. Patient has no cardiac symptoms. Patient may discharge from cardiology standpoint. Patient should follow-up with Dr Corrales in our [place] office on 10/06/2020 at 2:30 PM. #[id number] This patient was seen in conjunction with Dr Sanchez who agrees with this assessment and plan of care - Patient Problems (1) Dizziness Current Visit: Yes Status: Acute (2) Elevated blood pressure reading Current Visit: Yes Status: Acute (3) Non-ST elevation [place] (NSTEMI) Current Visit: Yes Status: Acute Subjective Date of service: 09/19/20 Principal diagnosis: Dizziness Interval history: Patient resting comfortably in bed. No chest pain or shortness of breath overnight. Telemetry reviewed: Sinus rhythm 73. No events Objective Last Vital Signs Temp 99.0 F 09/19/20 07:16 Pulse 60 09/19/20 08:03 Resp 18 09/19/20 07:16 BP 136/83 09/19/20 07:16 Pulse Ox 100 09/19/20 09:58 - Physical Examination General: No Apparent Distress HEENT: Positive: PERRL, Mucus Membranes Moist Neck: Positive: neck supple, trachea midline Cardiac: Positive: Reg Rate and Rhythm, S1/S2 Lungs: Positive: clear to auscultation, Normal Breath Sounds Neuro: Positive: Grossly Intact Abdomen: Positive: Soft, Active Bowel Sounds. Negative: Tender, Distended Skin: Positive: Clear Incision: Cardiac Cath Site Musculoskeletal: No Pain, Normal Range of Motion Extremities: Present: normal. Absent: edema - Imaging and Cardiology EKG: report reviewed, image reviewed Echo: report reviewed (Echocardiogram reviewed (09/16/2020): LVEF is 55 to 60%. LV SF is normal. Mild diastolic dysfunction is present (impaired relaxation pattern). RVSP is 25 mmHg) - Telemetry EKG Rhythm: Sinus Rhythm
--- NOTE | 2020-09-19 18:18 | Nuclear Medicine Report ---
APPROVED REPORT Exam: Nuclear Stress Test Indication: Chest pain BMI: 0 Stress Test Details Stress Test: Pharmacologic stress testing performed using 0.4 mg of regadenoson per 5 mL given IV over 10 seconds. HR Resting HR: 78 bpmMax Heart Rate (APMHR): 172 bpm Max HR Achieved: 137 bpmTarget HR (85% APMHR): 146 bpm % of APMHR: 79 Recovery HR: 114 bpm HR response to stress: Normal HR response to stress BP Resting BP: 146/92 mmHg Max BP: 167/104 mmHg Recovery BP: 135/94 mmHg BP response to stress: Normal blood pressure response to stress. ECG Resting ECG: Sinus Rhythm Stress ECG: Sinus Tachycardia ST Change: None Arrhythmia: None Recovery ECG: Sinus Rhythm Recovery ST Change: None Recovery Arrhythmia: None Clinical Reason for Termination: Completed protocol Stress ECG Conclusion Resting EKG showed S.R with sinus tachycardia post vasodilation.No ST changes or arrhythmia noted. NM EXAM: Myocardial Perfusion REST/STRESS Imaging Protocol: Rest Tc-99m/Stress Tc-99m 1 day Resting Data Rest SPECT myocardial perfusion imaging was performed in supine position 45 minutes following the intravenous injection of 10 mCi of Tc-99m Myoview. Time of rest injection: 0730 Pharmacologic Stress Pharmacologic stress test was performed by injecting Regadenoson 0.4 mg IV push followed by the intravenous injection of 28 mCi of Tc-99m Myoview. Time of stress injection: 0842 Gated Stress SPECT was performed 30 minutes after stress injection. The images were gated to evaluate regional wall motion and calculate left ventricular ejection fraction. Study Quality Study: Good Artifact: Mild Breast artifact Lung Uptake: Normal Study Data Post stress, the left ventricular ejection was 62%.. TID = 1.08. Perfusion Wall Motion The rest and stress images show normal left ventricular wall motion. Nuclear Conclusion ECG Findings: negative for ischemia Clinical Findings: negative for ischemia Nuclear Findings: negative for ischemia Exercise Capacity: not assessed Left Ventricular Function: normal Risk Study: low There is a medium area of mildly reduced uptake in the mid and apical segment of the anterior wall which is seen on the stress images and improves on the resting images.However this defect was felt to be artifactual ,considering normal wall motion. Post stress, the left ventricular ejection was 62%.. Conclusion Resting EKG showed S.R with sinus tachycardia post vasodilation.No ST changes or arrhythmia noted.
--- NOTE | 2020-09-21 11:37 | Treadmill Report ---
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
--- NOTE | 2020-10-05 10:52 | Electrocardiograph Report ---
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
== END 2020-09-19 13:00 | disposition home or self-care (01) ==
LOC: ED 08:52 → 4A 15:46
PROVIDERS: ADMIT Internal Medicine; ATTEND Internal Medicine
DX: I21.4 Non-ST elevation (NSTEMI) myocardial infarction (principal); I10 Essential (primary) hypertension; R42 Dizziness and giddiness; R03.0 Elevated blood-pressure reading, without diagnosis of hypertension; F17.210 Nicotine dependence, cigarettes, uncomplicated; Z98.890 Other specified postprocedural states; Z79.899 Other long term (current) drug therapy
CPT/HCPCS: 36415; 70450; 71046; 78452; 80053; 80061; 80307; 81001; 83735; 84443; 84484; 85025; 85610; 85730; 87086; 93005; 93017; 93306; 96372; 99285; 99406; A9502; G0378; J1650; J2785

== ENCOUNTER 2020-11-15 07:06 | Day surgery (SDC) | payer OTHER ==
[2020-11-15] MEDS ORDERED: ASPIRIN EC 325 MG TAB PO ONE (07:45)
[2020-11-15] MEDS ORDERED: SODIUM CHLORIDE 0.9% 500 ML 500 ML IV SCH (08:00)
[2020-11-15 08:41] LABS: Blood Urea Nitrogen 14 mg/dL (7-17); Hemolysis Index 118
[2020-11-15 08:48] LABS: BUN/Creatinine Ratio 28
[2020-11-15] MEDS ORDERED: HEPARIN/NS 5000 UNIT/500ML 1,000 ML IR ONE (09:04)
[2020-11-15] MEDS: fentaNYL 100 MCG/2 ML INJ ONE ×2 (10:00→10:07)
[2020-11-15] MEDS: MIDAZOLAM 2 MG/2 ML INJ ONE ×2 (10:00→10:07)
[2020-11-15] MEDS: LIDOCAINE (2%) 20 MG/1 ML VIAL 20 ML MDV INFILTRATI ONE ×2 (10:00→10:10)
[2020-11-15] MEDS: HEPARIN 10,000 UNITS/10 ML VIAL ONE ×2 (10:01→10:11)
[2020-11-15] MEDS: NITROGLYCERIN SYRINGE 3 ML ONE ×2 (10:01→10:11)
--- NOTE | 2020-11-15 10:06 | Electrocardiograph Report ---
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
[2020-11-15] MEDS: VERAPAMIL 5 MG/2 ML INJ ONE ×2 (10:08→10:11)
[2020-11-15] MEDS ORDERED: METOPROLOL TARTRATE 5 MG/5 ML INJ IV ONE (10:15)
--- NOTE | 2020-11-15 10:41 | Short Stay Summary ---
Short Stay Documentation Date of service: 11/15/20 - History H&P: obtained from office - Allergies and Medications Current Medications: Allergies oxycodone [From Percocet] Allergy (Verified 09/16/20 15:17) Itching Home Medications Medication Instructions Recorded Confirmed Last Taken Type Multivit-Min/Iron/Folic Acid/K 1 each PO QDAY 09/16/20 11/15/20 11/14/20 History [One Daily Women's Multivitamin] Meclizine [Antivert] 25 mg PO Q8H PRN #90 tablet 09/18/20 11/15/20 11/15/20 Rx Metoprolol [Lopressor TAB] 50 mg PO DAILY 11/15/20 11/15/20 11/15/20 History Active Medications Sodium Chloride (Nacl 0.9% 500 Ml) 500 mls @ 50 mls/hr IV DIRECT MAIKEL Stop: 11/15/20 17:59 Last Admin: 11/15/20 08:49 Dose: 50 mls/hr Documented by: - Brief post op/procedure progress note Date of procedure: 11/15/20 Pre-op diagnosis: cp Post-op diagnosis: same Procedure: see report Anesthesia: local Estimated blood loss: minimal Pathology: none - Disposition Condition at discharge: Good Disposition: DC-01 TO HOME OR SELFCARE - Discharge Diagnoses (1) Smoker Status: Chronic (2) Abnormal stress ECG Status: Resolved (3) Chest pain Status: Chronic Qualifiers: Chest pain type: unspecified Qualified Code(s): R07.9 - Chest pain, unspecified (4) Accelerated hypertension Status: Resolved Short Stay Discharge Plan Activity: advance as tolerated Diet: low fat, low cholesterol, low salt Wound: keep clean and dry Follow up with: PRIMARY CARE, [Primary Care Provider] - 7 Days
--- NOTE | 2020-11-15 12:15 | Cardiac Catherization Report ---
DATE OF SERVICE: 11/15/2020 LEFT HEART CATHETERIZATION CLINICAL INFORMATION: This is a 50-year-old female who was a smoker, had chest pain, abnormal stress test. 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 The patient was done with moderate sedation started at 10:07 and finished at 10:20 which is 13 minutes of moderate sedation. DESCRIPTION OF PROCEDURE: Procedure was done via the right radial artery, sterile technique, local anesthesia, 6-Japanese radial sheath inserted. Left system JL3.5 catheter, the left main is large and patent, bifurcates into large LAD that is patent from proximally to distally. Diagonal 1 and diagonal 2 small to medium caliber and patent. Circumflex, large caliber vessel, patent AV groove. OM1 is small to medium caliber and patent. OM2, 3 and 4 are small caliber vessels that are patent. RCA engaged with JR4, it is a large dominant vessel, patent. PDA and PLV are small to medium caliber and patent. LV gram done in [facility] and [facility] shows normal LV function, EF 55-60%. LVEDP 15 mmHg. LV is 144, aortic is 144/79. No gradient across the aortic valve on pullback. A 5-Japanese catheter was taken over guidewire. The 6-Japanese radial sheath was discontinued. Radial band applied. No hematoma. No bleeding. SUMMARY: Left main patent; LAD patent; circumflex patent; obtuse marginal 1, 2, 3, and 4 patent; RCA large dominant patent and normal LV function, noncardiac chest pain. Continue risk factor modification. TID: [id number] RECEIPT: [id number] GERONIMO/JAQUAN/KIMMY
[2020-11-15 14:43] VITALS: BP 118/79
== END 2020-11-15 14:30 | disposition home or self-care (01) ==
LOC: CATHLABREC 07:06
PROVIDERS: ATTEND Internal Medicine
DX: R07.89 Other chest pain (principal); R94.39 Abnormal result of other cardiovascular function study; I25.2 Old myocardial infarction; I10 Essential (primary) hypertension; I20.8 Other forms of angina pectoris; J45.909 Unspecified asthma, uncomplicated; F17.210 Nicotine dependence, cigarettes, uncomplicated; Z79.899 Other long term (current) drug therapy; Z88.8 Allergy status to other drugs, medicaments and biological substances; Z98.890 Other specified postprocedural states
CPT/HCPCS: 36415; 80048; 93005; 93458; 99156; C1894; J1644; J2250; J3010; J7040; Q9967